=== PATIENT | female | born 1990 | race Caucasian/White ===

== ENCOUNTER 2019-07-06 09:30 | Emergency (ER) | payer OTHER ==
[~2019-07-06] VITALS: Ht 154.9 cm; Wt 79.4 kg
[2019-07-06 10:13] LABS: ABSOLUTE NEUTROPHILS 9.7 thou/uL (1.4-8.2); BASOPHILS 0.5 % (0.0-2.0); HEMATOCRIT 41.8 % (37.0-47.0); HEMOGLOBIN 13.9 gm/dL (12.0-15.0); LYMPHOCYTES 20.1 % (24.0-44.0); MCH 30.7 pg (26.0-34.0); MCHC 33.2 g/dL (28.0-37.0); MCV 92.5 fL (80.0-100.0); MONOCYTES 5.2 % (1.0-8.0); PLATELET COUNT 309 thou/uL (150-400); POLYS 73.2 % (36.0-66.0); RBC 4.52 mil/uL (4.20-5.00); RDW 13.6 % (10.5-14.5); WBC 13.2 thou/uL (4.0-11.0)
[2019-07-06 10:17] LABS: CALCIUM 9.7 mg/dL (8.5-10.1); CREATININE 0.8 mg/dL (0.6-1.0); POTASSIUM 3.6 mmol/L (3.5-5.1)
[2019-07-06 10:23] LABS: TOTAL BILIRUBIN 0.6 mg/dL (<0.1-1.0); TOTAL PROTEIN 8.1 g/dL (6.4-8.2)
[2019-07-06 13:00] VITALS: BP 110/32
[2019-07-06] MEDS ORDERED: PRILOSEC OTC20 MG PO (13:00)
--- NOTE | 2019-07-06 13:10 | EKG ---
[address] [place] [address] ELECTROCARDIOGRAM REPORT Name: YVETTE HDZ Room #: [facility] Benito#: [id number] Admission: 07/06/19 Attend Phys: Discharge: Date of : 89 Report #: [id number] THIS REPORT FOR: //name// [facility] ED Test Date: 2019-07-06 Test Time: 10:27:41 Pat Name: YVETTE HDZ Department: Room: Gender: F [employer]: KEENAN : 1990 Requested By: Aye Ambrose Order Number: [id number] MD: Devan Lee Measurements Intervals Trail Rate: 69 P: 10 OR: 148 QRS: 49 QRSD: 84 T: 18 QT: 379 QTc: 406 Interpretive Statements Sinus arrhythmia No significant abnormality No previous ECG available for comparison Electronically Signed On 07-06-2019 13:09:43 [employer]ERN[employer]ISTER by Devan Lee [email or web address] <ELECTRONICALLY SIGNED> By: Devan Lee MD, [facility] 07/06/19 1309 1027 1027 Devan Lee MD, FACC /EPI
== END 2019-07-06 13:00 | disposition home or self-care (01) ==
LOC: ER 09:30
PROVIDERS: Emergency Medicine
DX: K80.20 Calculus of gallbladder without cholecystitis without obstruction (principal); K21.9 Gastro-esophageal reflux disease without esophagitis; R10.13 Epigastric pain; Z91.040 Latex allergy status